=== PATIENT | female | born 1995 | race Asian ===

== ENCOUNTER 2023-03-16 11:30 | Emergency (ER) | payer BC, OTHER ==
[~2023-03-16] VITALS: Ht 162.6 cm; Wt 42.1 kg
[2023-03-16 12:11] LABS: BASO % 0.7 % (0.0-1.0); EOS # 0.1 10^3/uL (0.0-0.5); EOS % 0.9 % (0.0-3.0); HEMATOCRIT 36.6 % (36.0-47.0); HEMOGLOBIN 12.4 g/dl (12.0-15.5); LYMPH # 1.7 10^3/uL (1.5-5.0); LYMPH % 30.9 % (24.0-44.0); MEAN CORPUSCULAR HGB CONC 33.9 g/dl (32.0-36.5); MEAN CORPUSCULAR VOLUME 88.6 fl (80.0-96.0); MONO # 0.4 10^3/uL (0.0-0.8); MONO % 7.1 % (2.0-8.0); NEUTROPHILS # 3.2 10^3/uL (1.5-8.5); NEUTROPHILS % 60.2 % (36.0-66.0); PLATELET COUNT, AUTOMATED 312 10^3/uL (150-450); RED BLOOD COUNT 4.13 10^6/uL (4.00-5.40); WHITE BLOOD COUNT 5.4 10^3/uL (4.0-10.0)
[2023-03-16 12:37] LABS: ALBUMIN 4.5 G/DL (3.2-5.2); BILIRUBIN,DIRECT 0.3 MG/DL (<0.4); BILIRUBIN,TOTAL 0.9 MG/DL (0.3-1.2); TOTAL PROTEIN 7.8 G/DL (5.7-8.2)
[2023-03-16 13:03] LABS: RSV AMPLIFICATION NEGATIVE (NEGATIVE)
[2023-03-16] MEDS ORDERED: NS 1,000 ML IV ONE (13:50)
[2023-03-16] MEDS ORDERED: ONDANSETRON 4MG 2ML VIAL IV ONE (13:50)
[2023-03-16 15:59] VITALS: BP 101/64; TEMP 98; O2SAT 99
[2023-03-16] MEDS ORDERED: ONDA4TAB6 PO (16:20)
== END 2023-03-16 16:31 | disposition home or self-care (01) ==
LOC: M ED 11:30
DX: F43.9 Reaction to severe stress, unspecified (principal); R11.2 Nausea with vomiting, unspecified; Z79.83 Long term (current) use of bisphosphonates
CPT/HCPCS: 80047; 80076; 83690; 84702; 85025; 87631; 96361; 96374; 99284; J2405